=== PATIENT | male | born 2000 | race Caucasian/White ===

== ENCOUNTER 2020-05-14 10:52 | Emergency (ER) | payer BC ==
[~2020-05-14] VITALS: Ht 193 cm; Wt 136.1 kg
[~2020-05-14 10:52] MED LIST: ABILIFY 2 MG2 MG; INTUNIV2 MG PO; INTUNIV4 MG PO; MEDROLDOSEPACK PO; NEOMYCIN-POLY-7.5 ML OP; TOPAMAX100 MG PO; VYVANSE40 MG PO
[2020-05-14] MEDS ORDERED: ONDANSETRON HCL4 M2 PO (12:07)
[2020-05-14 12:33] VITALS: BP 148/76
== END 2020-05-14 12:33 | disposition home or self-care (01) ==
LOC: M.ERS 10:52
DX: B34.9 Viral infection, unspecified (principal); Z20.828 Contact with and (suspected) exposure to other viral communicable diseases; R11.2 Nausea with vomiting, unspecified

== ENCOUNTER 2020-12-07 12:39 | Emergency (ER) | payer BC ==
[~2020-12-07] VITALS: Ht 190.5 cm; Wt 108.9 kg
[~2020-12-07 12:39] MED LIST changes: +ONDANSETRON HCL4 M2 PO
[2020-12-07] MEDS ORDERED: ATIVAN1 M1 PO (14:32)
[2020-12-07] MEDS ORDERED: ZOFRAN ODT4 MG DISSOLVE (14:32)
[2020-12-07 14:38] VITALS: BP 135/62
== END 2020-12-07 14:39 | disposition home or self-care (01) ==
LOC: M.ERS 12:39
DX: F11.10 Opioid abuse, uncomplicated (principal); R11.2 Nausea with vomiting, unspecified; F41.9 Anxiety disorder, unspecified